=== PATIENT | female | born 1995 ===

== ENCOUNTER 2023-05-26 09:41 | Emergency (ER) | payer OTHER ==
[~2023-05-26] VITALS: Ht 167.6 cm; Wt 109.1 kg
[2023-05-26 09:59] VITALS: TEMP 98.3
[2023-05-26] MEDS: FLUORESCEIN SODIUM 1 MG STRIP OD ONE (11:07)
[2023-05-26] MEDS: PROPARACAINE HCL 0.5% 15 ML OPHTHALMIC SOLUTION OD ONE (11:07)
[2023-05-26] MEDS ORDERED: MOXI3DRO25 OD (11:59)
[2023-05-26 12:06] VITALS: BP 132/70; PULSE 69; RESP 16
== END 2023-05-26 12:08 | disposition home or self-care (01) ==
LOC: EMS 09:42
DX: T15.11XA Foreign body in conjunctival sac, right eye, initial encounter (principal); H10.89 Other conjunctivitis; X58.XXXA Exposure to other specified factors, initial encounter; Y93.89 Activity, other specified; Y92.89 Other specified places as the place of occurrence of the external cause; Y99.0 Civilian activity done for income or pay
CPT/HCPCS: 99283